=== PATIENT | female | born 1950 | race Caucasian/White ===

== ENCOUNTER → 2021-12-22 | Outpatient (CLI) | payer MEDICARE ==
[~2021-12-22] MED LIST: BYSTOLIC5 MG PO; DIOVAN160 MG PO; DOXYCYCLINE HY100 M2 PO; MONTELUKAST SOD10 MG PO; PROTONIX40 MG PO; SYMBICORT 80-10.2 GM INH
== END ==
LOC: KOH-I 11:28
DX: M54.2 Cervicalgia (principal)
CPT/HCPCS: 76536